=== PATIENT | female | born 1955 | race Caucasian/White ===

== ENCOUNTER → 2022-04-20 07:23 | Outpatient (CLI) | payer MEDICARE, OTHER, SELFPAY ==
--- NOTE | 2022-04-20 | DI.MRI.S_ITS ---
PROCEDURE: MR ANKLE RT WO CON INDICATIONS: Stress fracture Right Ankle TECHNIQUE: Noncontrast sagittal T1 spin echo and T2 fast spin echo with fat saturation, axial proton density fast spin echo and T2 fast spin echo with fat saturation, coronal T1 spin echo and T2 fast spin echo with fat saturation through the ankle/hindfoot. COMPARISON: None. FINDINGS: Image quality: Excellent. Bones and joints: There is significant marrow edema involving medial periphery of talus weight-bearing portion with suggestion of a 6 mm osteochondral lesion involving medial corner of talar dome weight-bearing portion. No fracture or dislocation. Mild edema is also seen involving plantar weight-bearing portion of posterior calcaneus with well-defined plantar and dorsal calcaneal enthesophytes seen. No fracture line is noted. There is small amount of tibiotalar joint effusion, no gross loose bodies. Medial structures: The posterior tibialis is mildly thickened at the level of distal talus and talonavicular joint. The flexor digitorum longus, and flexor hallucis longus tendons are intact. The posterior tibial neurovascular bundle appears normal within the tarsal tunnel, without extrinsic mass effect. The deep layer (anterior and posterior tibiotalar ligaments) and superficial layer (tibionavicular, tibiospring, and tibiocalcaneal ligaments) of the deltoid ligament appear normal. The spring ligament components (superomedial calcaneonavicular, medioplantar oblique calcaneonavicular, and inferoplantar longitudinal ligaments) are intact. Lateral structures: The anterior talofibular, calcaneofibular, and posterior talofibular ligaments appear thickened. More superiorly, the anterior and posterior tibiofibular ligaments appear intact, as is the intermalleolar ligament. The tibiofibular syndesmosis is normal in width at 2 mm or less. The peroneus longus and brevis tendons demonstrate normal location and morphology. Adjacent bony peroneal tubercle and retrotrochlear prominence are normal in size. The sinus tarsi demonstrates normal fatty signal, without edema, fibrosis, or cyst formation. Visualized sinus tarsi components (cervical ligament, interosseous talocalcaneal ligament, roots of the inferior extensor retinaculum) appear normal. The calcaneonavicular and calcaneocuboid components of the bifurcate ligament appear intact. The dorsal calcaneocuboid ligament appears intact. Anterior structures: The tibialis anterior, extensor hallucis longus, and extensor digitorum longus tendons appear intact. The dorsal talonavicular ligament appears intact. Posterior and plantar structures: Achilles tendon is intact. Medial and lateral bands of the plantar fascia are thickened with intrasubstance T2 hyperintense signal at there calcaneal insertions. No abductor digiti quinti muscle atrophy to suggest Escobar neuropathy. IMPRESSION: 1. Suggestion of 6 mm osteochondral injury involving medial weight-bearing portion of talar dome with associated surrounding edema. Well-defined plantar and dorsal calcaneal enthesophytes with edema involving plantar calcaneus at plantar fascia insertion. No fracture or dislocation. Small amount of joint effusion, no gross loose bodies. 2. Tendinosis involving posterior tibialis tendon at the level of distal talus/talonavicular joint. Rest of the ankle tendons are intact. 3. Low-grade lateral ankle ligament sprain. 4. Suggestion of mild to moderate plantar fasciitis at its calcaneal insertion. Dictated by: Zack Ascencio M.D. on 04/20/2022 at 11:09 Approved by: Zack Ascencio M.D. on 04/20/2022 at 11:15
== END ==
PROVIDERS: PCP Registered Nurse; Referring Provider Physical Medicine & Rehabilitation Pain Medicine; Visit Provider Physical Medicine & Rehabilitation Pain Medicine
DX: S93.491A Sprain of other ligament of right ankle, initial encounter (principal); M77.31 Calcaneal spur, right foot
CPT/HCPCS: 73721

== ENCOUNTER → 2022-09-08 08:51 | Outpatient (CLI) | payer MEDICARE, OTHER, SELFPAY ==
--- NOTE | 2022-09-08 | DI.US.S_ITS ---
PROCEDURE: US PERIPH VENOUS LOW EXTREM RT INDICATIONS: Pain in right lower leg TECHNIQUE: Real-time imaging, as well as color and pulse Doppler interrogation, were performed of the lower extremity deep veins from the inguinal ligament to the popliteal fossa. COMPARISON: None. FINDINGS: The common femoral, femoral and popliteal veins are normally compressible, and free of intraluminal thrombus. Color and pulse Doppler demonstrate normal phasic intraluminal flow. There is normal augmentation response to distal compression maneuver. A complex fluid collection can be seen within the popliteal fossa that measures 3.3 x 2.4 x 2.6 cm. No associated increased vascularity can be seen. IMPRESSION: Negative for deep venous thrombosis. Complex popliteal fossa fluid collection seen. The appearance is most consistent with hematoma, although differential diagnosis includes a complex Guevara's cyst. Dictated by: Levon Hendrickson M.D. on 09/08/2022 at 9:12 Approved by: Levon Hendrickson M.D. on 09/08/2022 at 9:13
== END ==
PROVIDERS: PCP Registered Nurse; Referring Provider Orthopaedic Surgery; Visit Provider Orthopaedic Surgery
DX: M79.661 Pain in right lower leg (principal)
CPT/HCPCS: 93971

== ENCOUNTER → 2022-10-11 12:30 | Outpatient (CLI) | payer MEDICARE, OTHER, SELFPAY ==
[2022-10-11 13:01] LABS: Add Manual Diff / Slide Review NO; Basophils Absolute Auto 100 /uL (0-100); Eosinophils Absolute Auto 200 /uL (0-450); Eosinophils Percent Auto 2.5 % (2-4); Hematocrit 28.9 % (36-46); Hemoglobin 9.1 g/dL (12.0-16.0); Lymphocytes Absolute Auto 1400 /uL (1100-4500); Lymphocytes Percent Auto 19.3 % (25-40); Mean Corpuscular HGB Conc 31.5 % (30-36); Mean Corpuscular Volume 69.9 fL (80-100); Monocytes Absolute Auto 600 /uL (0-900); Monocytes Percent Auto 8.8 % (3-14); Neutrophils Absolute Auto 5000 /uL (1500-7000); Neutrophils Percent Auto 68.4 % (50-75); Platelet Count 279 X10^3/uL (150-400); Red Blood Cell Count 4.14 X10^6/uL (4.0-5.2); Red Cell Distribution Width 18.4 % (11.6-14.8); White Blood Cell Count 7.3 X10^3/uL (4.5-11.0)
[2022-10-11 13:19] LABS: C-Reactive Protein Quant 0.8 mg/dL (<1.0)
[2022-10-11 13:42] LABS: Erythrocyte Sedimentation Rate 38 MM/HR (0-20)
[2022-10-11 13:44] LABS: Hypochromasia 2+; Microcytosis 2+
== END ==
PROVIDERS: PCP Registered Nurse; Referring Provider Orthopaedic Surgery; Visit Provider Orthopaedic Surgery
DX: Z96.651 Presence of right artificial knee joint (principal)
CPT/HCPCS: 36415; 85025; 85651; 86140

== ENCOUNTER → 2022-12-19 10:04 | Outpatient (CLI) | payer OTHER, SELFPAY ==
--- NOTE | 2022-12-19 | DI.CT.S_ITS ---
PROCEDURE: CT LUMBAR SPINE WO CON INDICATIONS: SPINAL STENOSIS OF LUMBOSACRAL TECHNIQUE: Noncontrast 3 mm thick sections acquired from the T12 level to the sacrum. Sagittal and coronal reformats were constructed. For radiation dose reduction, the following was used: automated exposure control. COMPARISON: [facility], CR, XR LUMBAR SPINE 2 OR 3 VIEWS, 12/14/2022, 9:25. [facility], MR, MR LUMBAR SPINE WITHOUT CONTRAST, 05/17/2021, 9:00. FINDINGS: Image quality: Excellent. Bones: Extensive surgical hardware present. Posterior lateral melquiades and pedicle screw fixation at L4-L5. Interbody spacers at L1-L2, L2-L3, and L3-L4, with left lateral plate and screw fixation at L1-L2, L2-L3, and L3-L4. No evidence of hardware failure or loosening. Trace retrolisthesis of L1 on L2 and of L2 on L3. Trace anterolisthesis of L4 on L5. There is normal bony alignment. No acute vertebral body compression fractures. No suspicious lytic or blastic bony lesions. No pars defects. T12-L1: Mild facet hypertrophy. No canal stenosis or foraminal stenosis. L1-L2: Fused. No canal stenosis or significant foraminal stenosis. L2-L3: Fused. Posterior disc post osteophyte. Facet hypertrophy. No significant central canal stenosis. Mild bilateral foraminal stenosis. L3-L4: Fused. No significant canal stenosis. Mild bilateral foraminal stenosis. L4-L5: Fused. Facet hypertrophy. Zzfe-kt-aeifxolh canal stenosis. No significant foraminal stenosis. L5-S1: Minimal disc bulge. Mild facet hypertrophy. No canal stenosis or significant foraminal stenosis. Soft tissues: No retroperitoneal masses or hematomas. Visualized aorta is normal in caliber. IMPRESSION: 1. Intact surgical hardware. 2. There is iwau-aa-nqyblhsr canal stenosis at L4-L5, a fused level. 3. No significant foraminal narrowing. Dictated by: Dean Lopez M.D. on 12/19/2022 at 12:29 Approved by: Dean Lopez M.D. on 12/19/2022 at 12:37
== END ==
PROVIDERS: PCP Registered Nurse; Referring Provider Orthopaedic Surgery Orthopaedic Surgery of the Spine; Visit Provider Orthopaedic Surgery Orthopaedic Surgery of the Spine
DX: M48.07 Spinal stenosis, lumbosacral region (principal); Z98.1 Arthrodesis status; M48.061 Spinal stenosis, lumbar region without neurogenic claudication
CPT/HCPCS: 72131

== ENCOUNTER → 2023-04-07 09:10 | Outpatient (CLI) | payer OTHER, SELFPAY ==
--- NOTE | 2023-04-07 | DI.MRI.S_ITS ---
PROCEDURE: MR LUMBAR SPINE WO CON INDICATIONS: Lumbago with sciatica, unspecified side TECHNIQUE: Noncontrast sagittal T1 spin echo and T2 fast echo, sagittal STIR, and T2 fast spin echo through the lumbar spine. In cases with scoliosis, additional coronal T2 fast spin echo may be performed. COMPARISON: [facility], MR, MR LUMBAR SPINE WITHOUT CONTRAST, 05/17/2021, 9:00. [facility], CT, CT LUMBAR SPINE WO CON, 12/19/2022, 10:25. FINDINGS: Image quality: Excellent. Alignment and Curvature: Extensive lumbar surgical hardware. Posterior lateral melquiades and pedicle screw fixation at L4-L5. Interbody spacer placement at L1-L2, L2-L3, and L3-L4. Question cement placement at the disc of L4-L5. Left lateral vertebral body plate and screw fixation with separate plate and screws present at L1-L2, L2-L3, and L3-L4. Trace retrolisthesis of L1 on L2 and L2 on L3. Trace anterolisthesis of L4 on L5. Bone Marrow: Marrow is of normal overall signal. No acute vertebral body compression fractures. Spinal Cord: Conus medullaris terminates at the L2 level. Visualized cord demonstrates normal signal and size. Paraspinous Soft Tissues: No paravertebral masses. T12-L1: Mild facet hypertrophy. No canal stenosis or foraminal stenosis. L1-L2: Fused. No canal stenosis or foraminal stenosis. Facet hypertrophy. L2-L3: Fused. Facet hypertrophy. No significant canal stenosis. There is a degree of impingement of the right L3 nerve root in the right lateral recess between the disc and right facet. Reference image 19 of axial T2 series 6. Also, reference sagittal T2 image 9 of series 2. Mild bilateral foraminal stenosis. L3-L4: Fused. Bilateral facet hypertrophy. No significant canal stenosis. Mild bilateral foraminal stenosis. L4-L5: Fused. Trace anterolisthesis L4 on L5. Prominent facet hypertrophy. Plor-ag-zxegfkkb canal stenosis. Mild bilateral foraminal stenosis. L5-S1: Disc bulge. Facet hypertrophy. No canal stenosis or foraminal stenosis. IMPRESSION: 1. Extensive multilevel fusion hardware. 2. There is multilevel underlying facet arthropathy. 3. At L2-L3, there is a degree of impingement on the right L3 nerve root in the right lateral recess. 4. Gedg-gi-pivbscav canal stenosis at L4-L5. Dictated by: Dean Lopez M.D. on 04/09/2023 at 8:40 Approved by: Dean Lopez M.D. on 04/09/2023 at 8:49
== END ==
PROVIDERS: PCP Registered Nurse; Referring Provider Orthopaedic Surgery; Visit Provider Orthopaedic Surgery
DX: M54.40 Lumbago with sciatica, unspecified side (principal); M47.816 Spondylosis without myelopathy or radiculopathy, lumbar region; M47.817 Spondylosis without myelopathy or radiculopathy, lumbosacral region; M48.061 Spinal stenosis, lumbar region without neurogenic claudication; Z98.1 Arthrodesis status
CPT/HCPCS: 72148

== ENCOUNTER 2023-04-07 10:10 | Emergency (ER) | payer OTHER, SELFPAY ==
--- NOTE | 2023-04-07 10:19 | ED_ITS ---
HPI - Back Pain/Injury General Chief Complaint: Back Pain/Injury Stated Complaint: spinal back pain shooting down to feet Time Seen by Provider: 04/07/23 10:15 Source: patient, RN notes reviewed and old records reviewed Mode of arrival: Ambulatory Limitations: no limitations History of Present Illness HPI Narrative: States he is having year old female with history of chronic back pain with multiple back surgeries, dyslipidemia who presents with complaint of increased back pain for the past 8 weeks. Patient presented for outpatient MR which she had performed which then exacerbated her pain from lying flat for prolonged period. Patient states pain has been more concentrated in the left buttock and radiating down her leg this is her typical pattern but a little bit more in the left buttock than in the past. She has chronic paresthesias with no new changes. She is had no dysuria urgency or frequency has had occasional urinary incontinence which she describes as new but states she is also had that in the past. She is not had any fecal incontinence. Patient states she sometimes takes Rogers and gabapentin for pain. She takes 300 mg daily. She is not been taking it regularly. She takes lorazepam at night to help with sleep. Only other medication is Crestor. She states she is had back surgery several times including a cage placed. She follows with a surgeon in [place] who ordered her MR which she had done prior to presenting to the ED. patient states she is unsure if she is going to return to [facility] locally she has consulted with [address] of [address] spinal surgeons Dr. Crow but wishes for alternative options. Patient is allergic to Levaquin. Former smoker, occasional alcohol, no recreational drugs. Patient did drive herself today. She is requesting Toradol shot and states it has been helpful in the past. Related Data Home Medications Medication Instructions Recorded Confirmed lorazepam 1 mg tablet 1 mg PO 3XD 03/20/23 04/07/23 rosuvastatin 20 mg tablet 20 mg PO ONCE PM 03/20/23 04/07/23 Previous Rx's Medication Instructions Recorded gabapentin 300 mg capsule 300 mg PO DAILY #30 caps 04/07/23 prednisone 10 mg tablets in a dose See Rx Instructions PO .COMPLEX 04/07/23 pack #21 ea Allergies Allergy/AdvReac Type Severity Reaction Status Date / Time levofloxacin [From Levaquin] Allergy Intermediate Fatigued Verified 04/07/23 10:27 Sutures Allergy Intermediate Rash Verified 11/18/23 10:27 Review of Systems Review of Systems ROS Unobtainable: All systems reviewed & are unremarkable except as noted in HPI and below Patient History Medical History Chronic pain syndrome Depressed Surgical History H/O neck surgery History of lumbar surgery Family History Father Congestive heart failure Emphysema lung Mother Alzheimer disease Dementia Family/Other Cancer Diabetes mellitus Social History Smoking Status: Former smoker Smoking Status: Former smoker Exam Narrative Exam Narrative: GENERAL: Alert and oriented x three, female in moderate distress. HEENT: Head normocephalic, atraumatic, EOMI, pupils reactive, face symmetric, moist mucous membranes NECK: Supple, full range of motion CARDIOVASCULAR: Regular rate and rhythm without murmurs, rubs or gallops. RESPIRATORY: Breath sounds equal bilaterally, no wheezes rales or rhonchi. ABDOMEN: Soft, nontender. Normoactive bowel sounds all 4 quadrants. No guarding or rebound, rigidity, no mass : No CVA tenderness BACK: No cervical, thoracic or lumbar vertebral point tenderness. Patient has decreased range of motion. Patient's gait is antalgic. No saddle anesthesia. Muscle strength is 5/5 in right lower extremity, 4/5 in left lower extremity. DTRs are 2/4 and lower extremities. Dorsalis pedis and tibialis pulses are 2+ and lower extremities. Sensation is intact in the lower extremities. EXTREMITIES: Normal range of motion, neurovascularly intact. NEUROLOGICAL: Cranial nerves II through XII grossly intact. Moving all extremities SKIN: Warm, dry, no petechiae, no rashes or lesions. Initial Vital Signs Initial Vital Signs: Vital Signs Temperature 97.2 F L 04/07/23 10:20 Pulse Rate 83 04/07/23 10:20 Respiratory Rate 17 04/07/23 10:20 Blood Pressure 147/95 H 04/07/23 10:20 Pulse Oximetry 99 04/07/23 10:20 Oxygen Delivery Method Room Air 04/07/23 10:20 Course Orders Ordered: Discontinued Medications Ketorolac Tromethamine (Ketorolac 30 Mg/Ml Vial) 30 mg IM NOW ONE Stop: 04/07/23 10:20 Last Admin: 04/07/23 10:36 Dose: 30 mg Documented By: WALE Vital Signs Vital signs: Vital Signs - 8 hr 04/07/23 10:20 Temperature 97.2 F L Pulse Rate 83 Respiratory Rate 17 Blood Pressure 147/95 H Pulse Oximetry 99 Oxygen Delivery Method Room Air MDM - Back Pain/Injury MDM Narrative Medical decision making narrative: 67-year-old female who presents with increased pain after having an MR of her lower spine for increasing pain over the past 8 weeks. Patient notes occasional urinary incontinence which she has had sometimes in the past but not regularly. Patient has had increased pain but no other red flag symptoms noted. MRSA been performed but is not available currently. She is not having any changes curr ently in his able to ambulate with pain increased but not completely uncontrolled and felt appropriate for discharge with some pain management to follow up with her surgery team and MRI results. We will give a short course of prednisone, refill her gabapentin which is almost out we also discussed that she can increase that as well. Also given options for alternative spinal surgeons, she met with Dr. Crow in the last 1-2 months but would like different choices. Discharge Plan Departure Patient Disposition: Home Clinical Impression: Acute exacerbation of chronic low back pain Instructions: DI for Back Pain With Sciatica Activity Restrictions/Additional Instructions: Follow up with your surgeon that ordered your MRI today. An alternate option is included if you cannot see your surgeon in [place]. Please call us at up an appointment. Contact information is below. You can take steroids once daily until gone. This may be helpful for your pain but it is a short term medication. You can increase your gabapentin significantly, you can increase to 1 tablet 3 times daily and can still be titrated upwards if you find it helpful. Prescription sent to [facility] in [place]. Please return if you are having rapidly worsening symptoms, increasing or new loss of bowel or bladder control, increasing weakness, loss of sensation in been lifting move your leg or new or concerning changes. Prescriptions: New prednisone 10 mg tablets,dose pack See Rx Instructions .ROUTE .COMPLEX Qty: 21 0RF Rx Instructions: Take 6 tablets p.o. x1 day, then 5 tablets p.o. x1 day, then 4 tablets p.o. x 1 day, then 3 tablets p.o. x1 day, then 2 tablets p.o. x1 day, then 1 tablet p.o. x1 day gabapentin 300 mg capsule 300 mg PO DAILY Qty: 30 0RF No Action lorazepam 1 mg tablet 1 mg PO 3XD Rx Instructions: muscle relaxer for bedtime rosuvastatin 20 mg tablet 20 mg PO ONCE PM Referrals: Selene Perrin FNP-C [Primary Care Provider] - Brett Kohli MD [Physician] - Stand Alone Forms: Patient Portal/API
[2023-04-07 10:20] VITALS: BP 147/95; PULSE 83; RESP 17; TEMP 36.2; O2SAT 99; BMI 26.6
[2023-04-07] MEDS: KETOROLAC 30 MG/ML VIAL IM (10:36)
--- NOTE | 2023-04-07 11:18 | PC.NURSE ---
urinary incontinence the last 7-10 days
== END 2023-04-07 10:40 | disposition home or self-care (01) ==
PROVIDERS: Emergency Provider Emergency Medicine; PCP Registered Nurse
DX: M54.40 Lumbago with sciatica, unspecified side (principal); M47.816 Spondylosis without myelopathy or radiculopathy, lumbar region; M47.817 Spondylosis without myelopathy or radiculopathy, lumbosacral region; M48.061 Spinal stenosis, lumbar region without neurogenic claudication; Z98.1 Arthrodesis status
CPT/HCPCS: 72148; 96372; 99283; J1885

== ENCOUNTER → 2024-04-25 10:04 | Outpatient (CLI) | payer MEDICARE, OTHER, SELFPAY ==
--- NOTE | 2024-04-25 10:05 | DI.CT.S_ITS ---
PROCEDURE: CT LUNG LOW DOSE SCREENING INDICATIONS: ldls- nicotine dependence TECHNIQUE: Noncontrast 2.0-2.5 mm thick sections acquired from the pulmonary apices to the posterior costophrenic angles. 7 mm thick axial MIP, and 5 mm coronal and sagittal reformats were then acquired. For radiation dose reduction, the following was used: automated exposure control, adjustment of mA and/or kV according to patient size. COMPARISON: None. FINDINGS: Image quality: Diagnostic. Lower Neck: No enlarged lymph nodes. Thyroid: No thyroid nodules which require sonographic follow up, per consensus guidelines. Axillae: No enlarged lymph nodes. Chest Wall: Unremarkable. Bones: No aggressive appearing bony lesions. Lungs and Pleura: No pneumothorax or pleural effusions. No consolidations. Moderate centrilobular emphysema is seen. Reticular thickening in periphery of bilateral lung stone are seen. Right upper lobe: 3 mm calcified granuloma is seen in anterior right upper lobe series 3, image 77. Right middle lobe: None Right lower lobe: None. Left upper lobe: None. Left lower lobe: 3 mm solid nodule is noted in posterior lateral left lower lobe series 3 image 175. Heart: Heart size is normal. No pericardial effusion. Thoracic Vessels: The aorta and pulmonary arteries demonstrate normal size. Mediastinum and Katerine: No enlarged lymph nodes. Esophagus: No wall thickening. Moderate sized hiatal hernia. Upper Abdomen: Visualized upper abdomen solid organs and bowel loops appear normal. IMPRESSION: 1. No suspicious pulmonary nodules. 3 mm benign-appearing nodule in posterior lateral left lower lobe. Calcified granuloma in right upper lobe. LUNG-RADS 2; continued annual screening, if eligible. Clinically Significant Non-pulmonary Findings: Moderate hiatal hernia Dictated by: Zack Ascencio M.D. on 04/25/2024 at 15:05 Approved by: Zack Ascencio M.D. on 04/25/2024 at 15:09
== END ==
PROVIDERS: PCP Registered Nurse; Referring Provider Physician Assistant; Visit Provider Physician Assistant
DX: Z87.891 Personal history of nicotine dependence (principal); Z12.2 Encounter for screening for malignant neoplasm of respiratory organs; R91.1 Solitary pulmonary nodule; J43.2 Centrilobular emphysema; K44.9 Diaphragmatic hernia without obstruction or gangrene
CPT/HCPCS: 71271

== ENCOUNTER → 2024-06-18 11:32 | Outpatient (CLI) | payer MEDICARE, OTHER, SELFPAY ==
--- NOTE | 2024-06-18 11:37 | DI.RAD.S_ITS ---
PROCEDURE: XR DEXA AXIAL SKELETON INDICATIONS: POST MENOPAUSAL COMPARISON: None. FINDINGS: Left Femoral Neck: Bone mineral density is 0.936 g/cm2, T score 0.8. Left Hip: Bone mineral density is 0.974 g/cm2, T score 0.3, Z-score 1.7. Left Forearm: Bone mineral density is 0.606 g/cm2, T score 0.5, Z-score 2.4. Fracture Risk Calculation (when applicable): 10-year fracture risk of a major osteoporotic fracture 10 percent and of a hip fracture 0.3 percent. (T score greater or equal to -1.0 to: NORMAL) (T score from -1.1 to -2.4: OSTEOPENIA) (T score less than or equal to -2.5: OSTEOPOROSIS) IMPRESSION: Normal bone mineral density lumbar spine and left forearm. Follow-up guidelines as follows: Osteoporosis: Consider a repeat DEXA and Vertebral Fracture Assessment (VFA) exam in 2 years or sooner if medically necessary, to reassess this patient's status. Osteopenia: Consider a repeat DEXA in 2-3 years to reassess this patient's status, or if there is a new clinical indication. Normal: Consider a repeat DEXA in 5 years or sooner, or if there is a new clinical indication. All treatment decisions require clinical judgment and consideration of individual patient factors, including patient preferences, comorbidities, previous drug use, risk factors not captured in the FRAX model (e.g., frailty, falls, vitamin D deficiency, increased bone turnover, interval significant decline in bone density ) and possible under- or over-estimation of fracture risk by FRAX. In addition, the NOF Guide recommends that FDA-approved medical therapies be considered in postmenopausal women and men age >= 50 years with a: * Hip or vertebral (clinical or morphometric) fracture * T-score of <=-2.5 at the spine or hip * Ten-year fracture probability by FRAX of >= 3% for hip fracture or >=20% for major osteoporotic fracture. Dictated by: Darian Maxwell M.D. on 06/18/2024 at 18:27 Approved by: Darian Maxwell M.D. on 06/18/2024 at 18:33
[2024-06-18 12:50] LABS: Erythrocyte Sedimentation Rate 7 MM/HR (0-20)
[2024-06-18 12:58] LABS: C-Reactive Protein Quant < 0.5 mg/dL (<1.0)
== END ==
LOC: RAD 11:35
PROVIDERS: Student in an Organized Health Care Education/Training Program; PCP Physician Assistant; Referring Provider Physician Assistant; Visit Provider Physician Assistant
DX: T84.038A Mechanical loosening of other internal prosthetic joint, initial encounter; Z96.659 Presence of unspecified artificial knee joint; Z78.0 Asymptomatic menopausal state
CPT/HCPCS: 36415; 77080; 77081; 85651; 86140